=== PATIENT | female | born 1935 | race Caucasian/White ===

== ENCOUNTER 2017-12-10 14:48 | Inpatient (IN) | payer OTHER ==
[2017-12-10 15:19] VITALS: BMI 18.4
[2017-12-10 16:04] LABS: BASO # 0.1 K/uL (0.0-0.2); BASO % 1.1 % (0.0-2.0); EOS # 0.1 K/uL (0.0-0.7); EOS % 2.3 % (0.0-4.0); LYMPH % 49.7 % (20.0-40.0); MEAN CORPUSCULAR HEMOGLOBIN 31.3 pg (27.0-31.0); MEAN CORPUSCULAR HGB CONC 34.8 g/dL (33.0-37.0); MEAN PLATELET VOLUME 8.9 fL (7.2-11.7); MONO # 0.4 K/uL (0.0-0.8); MONO % 7.2 % (0.0-10.0); NEUT # 2.4 K/uL (1.8-7.0); NEUT % 39.7 % (50.0-75.0); RBC 4.17 Mil/uL (3.80-5.20); RED CELL DISTRIBUTION WIDTH 13.5 % (11.5-14.5)
[2017-12-10 16:12] LABS: INR 1.2; PROTHROMBIN TIME 13.4 SECONDS (9.7-12.2)
--- NOTE | 2017-12-10 16:58 | CT ---
PROCEDURE: CT HEAD WITHOUT CONTRAST. HISTORY: HEAD INJURY R/O BLEED COMPARISON: None available. TECHNIQUE: Axial computed tomography images were obtained through the head/brain without intravenous contrast. Radiation dose: Total exam DLP = 852.60 mGy-cm. This CT exam was performed using one or more of the following dose reduction techniques: Automated exposure control, adjustment of the mA and/or kV according to patient size, and/or use of iterative reconstruction technique. FINDINGS: HEMORRHAGE: No intracranial hemorrhage. BRAIN: No mass effect or edema. Mild to moderate diffuse age-appropriate atrophy. Moderate to severe chronic periventricular and deep/ subcortical white matter ischemic change. No evidence of acute infarct. Small old bilateral basal ganglia lacunar infarcts. VENTRICLES: Unremarkable. No hydrocephalus. CALVARIUM: No fracture. High left frontal scalp hematoma. PARANASAL SINUSES: Unremarkable as visualized. No significant inflammatory changes. MASTOID AIR CELLS: Unremarkable as visualized. No inflammatory changes. OTHER FINDINGS: None. IMPRESSION: No intracranial hemorrhage. Age related atrophy and chronic white matter ischemic change. High left frontal scalp hematoma.
[2017-12-10 17:00] LABS: ALB/GLOB RATIO 1.1 (1.0-2.1); ALBUMIN 3.9 g/dL (3.5-5.0); AST/SGOT 26 U/L (14-36); BLOOD UREA NITROGEN 16 mg/dL (7-17); CALCIUM 10.1 mg/dl (8.6-10.4); GFR AFRICAN-AMERICAN > 60; GFR NON-AFRICAN AMERICAN > 60
[2017-12-10 17:01] LABS: ALT/SGPT 25 U/L (9-52)
--- NOTE | 2017-12-10 17:04 | CT ---
PROCEDURE: CT MAXILLOFACIAL BONES WITHOUT CONTRAST HISTORY: FACIAL INJURY AFTER FALL R/O ORBITAL FX COMPARISON: None TECHNIQUE: Contiguous axial CT images of the maxillofacial bones were obtained. Coronal and sagittal reformats were generated. Radiation dose: Total exam DLP = 197.15 mGy-cm. This CT exam was performed using one or more of the following dose reduction techniques: Automated exposure control, adjustment of the mA and/or kV according to patient size, and/or use of iterative reconstruction technique. FINDINGS: NASAL BONES: Unremarkable. ORBITS: No orbital fracture. Globes are rounded and symmetric. No intraorbital hemorrhage. Optic nerves and extraocular muscles are symmetric. PARANASAL SINUSES/ MASTOIDS: Clear. MAXILLA: Unremarkable. MANDIBLE/ TEMPOROMANDIBULAR JOINTS: The mandible is not included in its entirety in this examination. No fracture identified. SKULL BASE: Unremarkable. TEMPORAL BONES: Middle ears and mastoid grossly unremarkable. OTHER FINDINGS: Mild left supraorbital scalp contusion. IMPRESSION: No evidence of facial fracture. Mild left supraorbital scalp contusion.
--- NOTE | 2017-12-10 17:10 | CT ---
PROCEDURE: CT Thoracic Spine without contrast HISTORY: THORACIC SPINE POSSIBLE FX COMPARISON: None. TECHNIQUE: Axial computed tomography images were obtained of the thoracic spine without intravenous contrast. Coronal and sagittal reformatted images were created and reviewed. Radiation dose: Total exam DLP = 594.64 mGy-cm. This CT exam was performed using one or more of the following dose reduction techniques: Automated exposure control, adjustment of the mA and/or kV according to patient size, and/or use of iterative reconstruction technique. FINDINGS: VERTEBRAE: Unremarkable. No fracture. Normal alignment. DISCS/SPINAL CANAL/NEURAL FORAMINA: Within the limits of the CT technique, no disc herniation seen. No central canal or neural foraminal stenosis.. PARASPINAL SOFT TISSUES: Unremarkable. OTHER FINDINGS: Unremarkable. IMPRESSION: No evidence of fracture or dislocation.
--- NOTE | 2017-12-10 17:14 | CT ---
PROCEDURE: CT Lumbar Spine without contrast HISTORY: FALL, BACK PAIN, R/O FX COMPARISON: None. TECHNIQUE: Axial computed tomography images were obtained of the lumbar spine without the use of intravenous contrast. Coronal and sagittal reformatted images were created and reviewed. Radiation dose: Total exam DLP = 1013.86 mGy-cm. This CT exam was performed using one or more of the following dose reduction techniques: Automated exposure control, adjustment of the mA and/or kV according to patient size, and/or use of iterative reconstruction technique. FINDINGS: VERTEBRAE: Unremarkable. No fracture. Normal alignmentThe vertebral bodies are maintained in height. The transverse processes and posterior elements are intact. There is mild dextroscoliotic curvature of the lumbar spine. . DISCS/SPINAL CANAL/NEURAL FORAMINA: There is narrowing of all of the intervertebral disc spaces of the lumbar spine consistent with diffuse degenerative disc disease. There is no gross disc herniation. There is no spinal stenosis appreciated. There is bilateral degenerative facet arthropathy at L4-5. PARASPINAL SOFT TISSUES: Unremarkable. OTHER FINDINGS: None. IMPRESSION: No evidence of fracture or dislocation. Diffuse degenerative disc disease. Mild dextroscoliosis.
--- NOTE | 2017-12-10 17:37 | C.PDOC ---
History Of Present Illness Patient is non Yoruba speaker, most of the history is obtained from group home and PMD Dr. Aguilar Kaiser. Patient was sent to the ED from her Longterm for evaluation. Patient was recently admitted to the group home yesterday and on arrival it was noted she bruising in her face. Patient had X-Ray done as an outpatient ordered by Dr. Aguilar Kaiser. X-Ray showed patient had compression fracture of T12 and Dr. Aguilar Kaiser sent her to the ED for evaluation. - HPI Time Seen by Provider: 12/10/17 15:06 Chief Complaint (Nursing): Trauma History Per: EMS, Other (PMD Dr. Aguilar Kaiser) History/Exam Limitations: language barrier Onset/Duration Of Symptoms: Days Injury Occurred (Timing): Just Before Arrival Location Of Injury: Left: Face (periorbtital) Recent travel outside of the [place]: No Additional History Per: Longterm Past Medical History Reviewed: Historical Data, Nursing Documentation, Vital Signs Vital Signs: Last Vital Signs Temp 97.4 F L 12/10/17 15:01 Pulse 83 12/10/17 15:01 Resp 20 12/10/17 15:01 BP 147/89 12/10/17 15:01 Pulse Ox 97 12/10/17 15:01 - Medical History PMH: HTN Surgical History: No Surg Hx Family History: States: Unknown Family Hx - Social History Hx Alcohol Use: No Hx Substance Use: No Review Of Systems Review Of Systems: ROS cannot be obtained secondary to pt's inabilty to answer questions. Physical Exam - Physical Exam Appears: Non-toxic, No Acute Distress Skin: Warm, Dry, Ecchymosis (left periorbital area) Head: Atraumatic, Normacephalic, Other (ecchymosis left periorbital area) Eye(s): bilateral: Normal Inspection, PERRL, EOMI Nose: No Discharge Oral Mucosa: Moist Neck: Normal ROM, No Midline Cervical Tenderness, Supple Chest: Symmetrical Cardiovascular: Rhythm Regular, No Murmur Respiratory: Normal Breath Sounds, No Rales, No Rhonchi, No Wheezing Gastrointestinal/Abdominal: Soft, No Tenderness, No Guarding, No Rebound Back: Other (Tenderness mid back level of T11 to L1 area) Extremity: No Deformity Extremity: Bilateral: Atraumatic, Normal Color And Temperature, Normal ROM Neurological/Psych: Oriented x3 ED Course And Treatment - Laboratory Results Result Diagrams: 12/10/17 16:06 12/10/17 16:06 O2 Sat by Pulse Oximetry: 97 (ON RA) Pulse Ox Interpretation: Normal - CT Scan/US CT head Other Rad Studies (CT/US): Read By Radiologist, Radiology Report Reviewed CT/US Interpretation: Accession No. : [id number]. Patient Name / ID : JORDAN RUSHING / [id number]. Exam Date : 12/10/2017 16:06:15 ( Approved ). Study Comment : Sex / Age : F / 81Y. Creator : Kelly Gates. Dictator : Colby Cain MD. Agile Scrum Coach : Town Manager : Colby Cain MD. Approver2 : Report Date : 12/10/2017 16:21:44. My Comment : . PROCEDURE: CT HEAD WITHOUT CONTRAST. HISTORY: HEAD INJURY R/O BLEED. COMPARISON: None available. TECHNIQUE: Axial computed tomography images were obtained through the head/brain without intravenous contrast. Radiation dose: Total exam DLP = 852.60 mGy-cm. This CT exam was performed using one or more of the following dose reduction techniques: Automated exposure control, adjustment of the mA and/or kV according to patient size, and/or use of iterative reconstruction technique. FINDINGS: HEMORRHAGE: No intracranial hemorrhage. BRAIN: No mass effect or edema. Mild to moderate diffuse age-appropriate atrophy. Moderate to severe chronic periventricular and deep/ subcortical white matter ischemic change. No evidence of acute infarct. Small old bilateral basal ganglia lacunar infarcts. VENTRICLES: Unremarkable. No hydrocephalus. CALVARIUM: No fracture. High left frontal scalp hematoma. PARANASAL SINUSES: Unremarkable as visualized. No significant inflammatory changes. MASTOID AIR CELLS: Unremarkable as visualized. No inflammatory changes. OTHER FINDINGS: None. IMPRESSION: No intracranial hemorrhage. Age related atrophy and chronic white matter ischemic change. High left frontal scalp hematoma. CT facial bones Other Rad Studies (CT/US): Read By Radiologist, Radiology Report Reviewed CT/US Interpretation: Accession No. : [id number]. Patient Name / ID : JORDAN RUSHING / [id number]. Exam Date : 12/10/2017 16:09:54 ( Approved ). Study Comment : Sex / Age : F / 81Y. Creator : Kelly Gates. Dictator : Colby Cain MD. Agile Scrum Coach : Town Manager : Colby Cain MD. Approver2 : Report Date : 12/10/2017 16:21:50. My Comment : . PROCEDURE: CT MAXILLOFACIAL BONES WITHOUT CONTRAST. HISTORY: FACIAL INJURY AFTER FALL R /O ORBITAL FX. COMPARISON: None. TECHNIQUE: Contiguous axial CT images of the maxillofacial bones were obtained. Coronal and sagittal reformats were generated. Radiation dose: Total exam DLP = 197.15 mGy-cm. This CT exam was performed using one or more of the following dose reduction techniques: Automated exposure control, adjustment of the mA and/or kV according to patient size, and/or use of iterative reconstruction technique. FINDINGS: NASAL BONES : Unremarkable. ORBITS: No orbital fracture. Globes are rounded and symmetric. No intraorbital hemorrhage. Optic nerves and extraocular muscles are symmetric. PARANASAL SINUSES/ MASTOIDS: Clear. MAXILLA: Unremarkable. MANDIBLE/ TEMPOROMANDIBULAR JOINTS: The mandible is not included in its entirety in this examination. No fracture identified. SKULL BASE: Unremarkable. TEMPORAL BONES: Middle ears and mastoid grossly unremarkable. OTHER FINDINGS: Mild left supraorbital scalp contusion. IMPRESSION: No evidence of facial fracture. Mild left supraorbital scalp contusion. CT L SPine Other Rad Studies (CT/US): Read By Radiologist, Radiology Report Reviewed CT/US Interpretation: Accession No. : [id number]. Patient Name / ID : JORDAN RUSHING / [id number]. Exam Date : 12/10/2017 16:16:00 ( Approved ). Study Comment : Sex / Age : F / 81Y. Creator : Kelly Gates. Dictator : Colby Cain MD. Agile Scrum Coach : Town Manager : Colby Cain MD. Approver2 : Report Date : 12/10/2017 16:45:29. My Comment : . PROCEDURE: CT Lumbar Spine without contrast. HISTORY: FALL, BACK PAIN, R/O FX. COMPARISON: None. TECHNIQUE: Axial computed tomography images were obtained of the lumbar spine without the use of intravenous contrast. Coronal and sagittal reformatted images were created and reviewed. Radiation dose: Total exam DLP = 1013.86 mGy-cm. This CT exam was performed using one or more of the following dose reduction techniques: Automated exposure control, adjustment of the mA and/or kV according to patient size, and/or use of iterative reconstruction technique. FINDINGS: VERTEBRAE: Unremarkable. No fracture. Normal alignmentThe vertebral bodies are maintained in height. The transverse processes and posterior elements are intact. There is mild dextroscoliotic curvature of the lumbar spine. . DISCS/SPINAL CANAL/NEURAL FORAMINA: There is narrowing of all of the intervertebral disc spaces of the lumbar spine consistent with diffuse degenerative disc disease. There is no gross disc herniation. There is no spinal stenosis appreciated. There is bilateral degenerative facet arthropathy at L4-5. PARASPINAL SOFT TISSUES: Unremarkable. OTHER FINDINGS: None. IMPRESSION: No evidence of fracture or dislocation. Diffuse degenerative disc disease. Mild dextroscoliosis. CT T spine Other Rad Studies (CT/US): Read By Radiologist, Radiology Report Reviewed CT/US Interpretation: Accession No. : [id number]. Patient Name / ID : JORDAN RUSHING / [id number]. Exam Date : 12/10/2017 16:12:58 ( Approved ). Study Comment : Sex / Age : F / 81Y. Creator : Kelly Gates. Dictator : Colby Cain MD. Agile Scrum Coach : Town Manager : Colby Cain MD. Approver2 : Report Date : 12/10/2017 16:23:02. My Comment : . PROCEDURE: CT Thoracic Spine without contrast. HISTORY: THORACIC SPINE POSSIBLE FX. COMPARISON: None. TECHNIQUE: Axial computed tomography images were obtained of the thoracic spine without intravenous contrast. Coronal and sagittal reformatted images were created and reviewed. Radiation dose: Total exam DLP = 594.64 mGy-cm. This CT exam was performed using one or more of the following dose reduction techniques: Automated exposure control, adjustment of the mA and/ or kV according to patient size, and/or use of iterative reconstruction technique. FINDINGS: VERTEBRAE: Unremarkable. No fracture. Normal alignment. DISCS/SPINAL CANAL/NEURAL FORAMINA: Within the limits of the CT technique, no disc herniation seen. No central canal or neural foraminal stenosis.. PARASPINAL SOFT TISSUES: Unremarkable. OTHER FINDINGS: Unremarkable. IMPRESSION: No evidence of fracture or dislocation. Progress Note: Plan: - CT head. - CT facial bones. - CT L spine. - CT T spine. - EKG. - Labs. - Tylenol 650 mg PO. - UA Disposition - Disposition - Scribe Statement The provider has reviewed the documentation as recorded by the Scribe Nick Cherry All medical record entries made by the Scribe were at my direction and personally dictated by me. I have reviewed the chart and agree that the record accurately reflects my personal performance of the history, physical exam, medical decision making, and the department course for this patient. I have also personally directed, reviewed, and agree with the discharge instructions and disposition.
[2017-12-10] MEDS ORDERED: Sodium Chloride 0.9% 500 ML IV ONE ×2 (18:01→18:23)
[2017-12-10 18:30] LABS: SQUAMOUS EPITHIAL < 1 /hpf (0-5); URINE BILIRUBIN NEGATIVE (NEGATIVE); URINE BLOOD 1+ (NEGATIVE); URINE CLARITY Clear (Clear); URINE COLOR Yellow (YELLOW); URINE GLUCOSE (UA) 3+ mg/dL (Normal); URINE LEUKOCYTE ESTERASE NEG Leu/uL (Negative); URINE PROTEIN NEGATIVE (NEGATIVE); URINE UROBILINOGEN NORMAL mg/dL (0.2-1.0)
[2017-12-10] MEDS ORDERED: (Novolin R) Insulin Human Regular 100 units/ml vial IV ONE (18:30)
[2017-12-10] MEDS ORDERED: (Novolin R) Insulin Human Regular 100 units/ml vial ONE (19:15)
--- NOTE | 2017-12-11 10:00 | CT ---
PROCEDURE: CT HEAD WITHOUT CONTRAST. HISTORY: altered mental status COMPARISON: 12/10/2017 TECHNIQUE: Axial computed tomography images were obtained through the head/brain without intravenous contrast. Radiation dose: Total exam DLP = 857 mGy-cm. This CT exam was performed using one or more of the following dose reduction techniques: Automated exposure control, adjustment of the mA and/or kV according to patient size, and/or use of iterative reconstruction technique. FINDINGS: HEMORRHAGE: No intracranial hemorrhage. BRAIN: No mass effect or edema. Scattered focal lucencies in the subcortical and periventricular white matter suggestive for chronic microvascular ischemic change. Age related atrophy. Chronic bilateral basal ganglia lacunar infarcts. VENTRICLES: Unremarkable. No hydrocephalus. CALVARIUM: Unremarkable. PARANASAL SINUSES: Unremarkable as visualized. No significant inflammatory changes. MASTOID AIR CELLS: Unremarkable as visualized. No inflammatory changes. OTHER FINDINGS: Persistent high left frontal scalp hematoma. IMPRESSION: Chronic microvascular ischemic change. Bilateral basal ganglia lacunar infarcts. Persistent mild left frontal scalp hematoma. Age related atrophy. If symptoms persists, consider further evaluation with MRI.
[2017-12-11] MEDS: Enoxaparin 40 mg Syringe SC SCH (10:08)
[2017-12-11] MEDS: Multiple Vitamins Tab PO SCH (10:09)
--- NOTE | 2017-12-11 11:34 | CP.PCM.HP ---
Past Patient History - Past Social History Smoking Status: Never Smoked - CARDIAC Hx Hypertension: Yes - ENDOCRINE/METABOLIC Hx Diabetes Mellitus Type 2: Yes - MUSCULOSKELETAL/RHEUMATOLOGICAL Hx Falls: Yes - PSYCHIATRIC Hx Substance Use: No Meds Allergies/Adverse Reactions: Allergies Allergy/AdvReac Type Severity Reaction Status Date / Time No Known Allergies Allergy Unverified 12/10/17 15:01 Physical Exam - Constitutional Appears: Well - Head Exam Head Exam: ATRAUMATIC, NORMAL INSPECTION, NORMOCEPHALIC - Eye Exam Eye Exam: EOMI, Normal appearance, PERRL Pupil Exam: NORMAL ACCOMODATION, PERRL - ENT Exam ENT Exam: Mucous Membranes Moist, Normal Exam - Neck Exam Neck exam: Positive for: Normal Inspection - Respiratory Exam Respiratory Exam: Decreased Breath Sounds - Cardiovascular Exam Cardiovascular Exam: REGULAR RHYTHM, +S1, +S2 - GI/Abdominal Exam GI & Abdominal Exam: Diminished Bowel Sounds, Soft - Rectal Exam Rectal Exam: Deferred Results - Vital Signs Recent Vital Signs: Last Vital Signs Temp 98.4 F 12/11/17 07:00 Pulse 78 12/11/17 07:00 Resp 20 12/11/17 07:00 BP 129/78 12/11/17 07:00 Pulse Ox 99 12/11/17 07:00 - Labs Result Diagrams: 12/10/17 16:06 12/10/17 16:06 Labs: Laboratory Results - last 24 hr 12/10/17 12/10/17 12/10/17 16:06 16:06 16:06 WBC 6.0 RBC 4.17 Hgb 13.0 Hct 37.5 MCV 90.0 MCH 31.3 H MCHC 34.8 RDW 13.5 Plt Count 255 MPV 8.9 Neut % (Auto) 39.7 L Lymph % (Auto) 49.7 H [place] % (Auto) 7.2 Eos % (Auto) 2.3 Baso % (Auto) 1.1 Neut # (Auto) 2.4 Lymph # (Auto) 3.0 [place] # (Auto) 0.4 Eos # (Auto) 0.1 Baso # (Auto) 0.1 PT 13.4 H INR 1.2 APTT 26 Sodium 139 Potassium 4.2 Chloride 99 Carbon Dioxide 26 Anion Gap 17 BUN 16 Creatinine 0.7 Est GFR ( Amer) > 60 Est GFR (Non-Af Amer) > 60 Random Glucose 352 H Calcium 10.1 Total Bilirubin 0.8 AST 26 ALT 25 Alkaline Phosphatase 151 H Total Protein 7.6 Albumin 3.9 Globulin 3.7 Albumin/Globulin Ratio 1.1 Urine Color Urine Clarity Urine pH Ur Specific [place] Urine Protein Urine Glucose (UA) Urine Ketones Urine Blood Urine Nitrate Urine Bilirubin Urine Urobilinogen Ur Leukocyte Esterase Urine WBC (Auto) Urine RBC (Auto) Ur Squamous Epith Cells 12/10/17 18:19 WBC RBC Hgb Hct MCV MCH MCHC RDW Plt Count MPV Neut % (Auto) Lymph % (Auto) [place] % (Auto) Eos % (Auto) Baso % (Auto) Neut # (Auto) Lymph # (Auto) [place] # (Auto) Eos # (Auto) Baso # (Auto) PT INR APTT Sodium Potassium Chloride Carbon Dioxide Anion Gap BUN Creatinine Est GFR ( Amer) Est GFR (Non-Af Amer) Random Glucose Calcium Total Bilirubin AST ALT Alkaline Phosphatase Total Protein Albumin Globulin Albumin/Globulin Ratio Urine Color Yellow Urine Clarity Clear Urine pH 5.0 Ur Specific [place] 1.032 H Urine Protein Negative Urine Glucose (UA) 3+ H Urine Ketones Trace Urine Blood 1+ H Urine Nitrate Negative Urine Bilirubin Negative Urine Urobilinogen Normal Ur Leukocyte Esterase Neg Urine WBC (Auto) 4 Urine RBC (Auto) < 1 Ur Squamous Epith Cells < 1
[2017-12-11] MEDS ORDERED: (Novolin R) Insulin Human Regular 100 units/ml vial SC SCH ×2 (17:54→22:00)
[2017-12-11] MEDS: (Novolin R) Insulin Human Regular 100 units/ml vial SC SCH ×2 (18:01→21:31)
--- NOTE | 2017-12-12 02:33 | CON ---
DATE: 12/10/2017 REASON FOR CONSULTATION: Status post fall and head trauma, concussion. HISTORY OF PRESENT ILLNESS: The patient is an 81-year-old female with past medical history of hypertension and dementia. The patient was living in [place], and the patient was brought here to senior care, and the patient was put in senior care just a day before the patient was noted to have a bruise on her face and had x-ray in the office and was found also to have T2 compression fracture. The patient was admitted for further evaluation after a CAT scan of the brain was done, and it showed the patient has a large left parietal hematoma. I have spoken with the son from [place]. The patient has a history of dementia, and the family were unable to take care of her, and they put her in senior care. The patient although unable to give any history, the daughter is at bedside, and the son-in-law as well. They say that the patient is completely dependent, unable to take care of herself. Needs help even with eating. The patient slightly recalls remote memories, but otherwise short-term memory and the patient's span completely gone. PAST MEDICAL HISTORY: Hypertension. SOCIAL HISTORY: Nonsmoker. Ethanol user. ALLERGIES: NO KNOWN ALLERGIC REACTIONS TO MEDICATIONS. PAST SURGICAL HISTORY: No major surgery in the past. REVIEW OF SYSTEMS: As per H and P and ER notes, reviewed. PHYSICAL EXAMINATION: VITAL SIGNS: Blood pressure 147/89, pulse 83, respirations 20, temperature 97.4. MENTAL STATUS: The patient is awake and alert. Makes eyes contact. Follow one-step commands with efforts, but unable to follow two step commands. Disoriented to time, place, and person. CRANIAL NERVES: Pupils 2 mm, bilaterally reactive. No facial asymmetry. No field defect. The patient was cooperative for full neurological examination. There is some mild asymmetry of nasal fold, probably a right central facial palsy. Mild twitches of the left eyelid. MOTOR: Normal tone in upper and lower extremities. The patient is able to lift her arms against gravity, and withdraws her lower extremities and responds to noxious stimuli. Deep tendon reflexes 1 in upper extremities, absent bilateral lower extremities. Plantar flexion. SENSORY: The patient withdraws her extremities and responds to noxious stimuli. MEDICATIONS: The patient is currently on multivitamin, enoxaparin, lisinopril, glipizide. IMAGING: I have reviewed the CAT of the brain which is consistent with severe periventricular white matter disease and multiple bilateral lacunar infarct. LABORATORY DATA: Reviewed as well. White blood cells 6, red blood cells 4.17, hemoglobin 13, hematocrit 37. MCV 90, platelet count 255. Sodium 139, potassium 4.2, chloride 99, CO2 of 26, anion gap 17, BUN 16, alkaline phosphatase 151. Glucose random 352. POC glucose was 205. IMPRESSION: Status post fall and concussion, not known if she lost her consciousness with the fall or not, but there is enlarged left occipital hematoma. The patient has dementia, most likely vascular dementia because of severe periventricular white matter disease, multiple lacunar infarcts in the subcortical region, advanced dementia. The patient's dementia is advanced and vascular. I do not expect the patient is benefiting from Aricept or Namenda. I would now start the patient on either one of them. Repeat CAT scan of the brain also reviewed, did not reveal significant changes. CT of the lumbar spine did not reveal fracture, was consistent with mild dextroscoliosis. CAT scan of the thoracic spine did not reveal fracture or dislocation. Otherwise, no further workup recommended at this point. Above was discussed with the family at bedside. Thank you for the consultation. Ferdinand Low MD
[2017-12-12] MEDS: (Novolin R) Insulin Human Regular 100 units/ml vial SC SCH ×4 (08:21→21:31)
[2017-12-12] MEDS: Enoxaparin 40 mg Syringe SC SCH (10:00)
[2017-12-12] MEDS: Multiple Vitamins Tab PO SCH (10:00)
--- NOTE | 2017-12-12 15:34 | CP.PCM.PN ---
Subjective - Date & Time of Evaluation Date of Evaluation: 12/12/17 Time of Evaluation: 10:20 - Subjective Subjective: clinically same Objective - Vital Signs/Intake and Output Vital Signs (last 24 hours): Temp Pulse Resp BP Pulse Ox 98.3 F 85 20 134/85 100 12/12/17 12:00 12/12/17 12:00 12/12/17 12:00 12/12/17 12:00 12/12/17 12:00 Intake and Output: 12/12/17 12/12/17 06:59 18:59 Intake Total 350 Output Total 265 Balance 85 - Medications Medications: Current Medications Enoxaparin Sodium (Lovenox) 40 mg SC DAILY [facility] Last Admin: 12/12/17 10:00 Dose: 40 mg Glipizide (Glucotrol) 5 mg PO DAILY [facility] Last Admin: 12/12/17 10:00 Dose: 5 mg Insulin Human Regular (Novolin R) 0 unit SC [facility] PRN Reason: Protocol Last Admin: 12/12/17 12:42 Dose: 4 unit Lisinopril (Zestril) 10 mg PO DAILY [facility] Last Admin: 12/12/17 10:00 Dose: 10 mg Multivitamins (Hexavitamin) 1 tab PO DAILY [facility] Last Admin: 12/12/17 10:00 Dose: 1 tab - Labs Labs: 12/10/17 16:06 12/10/17 16:06 PT 13.4 SECONDS (9.7-12.2) H 12/10/17 16:06 INR 1.2 12/10/17 16:06 APTT 26 SECONDS (21-34) 12/10/17 16:06 - Constitutional Appears: Well - Head Exam Head Exam: ATRAUMATIC, NORMAL INSPECTION, NORMOCEPHALIC - Eye Exam Eye Exam: EOMI, Normal appearance, PERRL Pupil Exam: NORMAL ACCOMODATION, PERRL - ENT Exam ENT Exam: Mucous Membranes Moist, Normal Exam - Neck Exam Neck Exam: Full ROM, Normal Inspection. absent: Lymphadenopathy - Respiratory Exam Respiratory Exam: Decreased Breath Sounds - Cardiovascular Exam Cardiovascular Exam: REGULAR RHYTHM, +S1, +S2 - GI/Abdominal Exam GI & Abdominal Exam: Soft, Diminished Bowel Sounds - Rectal Exam Rectal Exam: Deferred
[2017-12-13] MEDS: (Novolin R) Insulin Human Regular 100 units/ml vial SC SCH ×4 (07:48→21:26)
[2017-12-13 08:24] LABS: FREE T4 1.91 ng/dL (0.78-2.19)
[2017-12-13 09:19] LABS: FOLATE 6.2 ng/mL
[2017-12-13] MEDS: Multiple Vitamins Tab PO SCH (09:28)
[2017-12-13] MEDS: Enoxaparin 40 mg Syringe SC SCH (09:28)
--- NOTE | 2017-12-13 10:43 | MRI ---
PROCEDURE: MRI brain 12/13/2017. HISTORY: Left subcortical stroke. COMPARISON: Comparison made with prior CT scan of the brain dated 12/11/2017. TECHNIQUE: Multiplanar, multisequence MR images of the brain were obtained without intravenous contrast enhancement. FINDINGS: HEMORRHAGE: No acute parenchymal, subarachnoid or extra-axial hemorrhage. No evidence hemosiderin deposition identified on gradient echo weighted sequence. DWI: No evidence of an acute or early subacute infarction seen on diffusion imaging. . There are however multiple tiny foci of very dark T2 signal scattered about the supratentorial compartment bilaterally. These findings are consistent with tiny hemosiderin deposits -sequela of chronic hemorrhage. Rule out sequela of amyloid angiography or multiple cavernous hemangiomas BRAIN PARENCHYMA: Significant diffuse/confluent chronic periventricular white matter ischemic changes extending peripherally into the deep and subcortical white matter both cerebral hemispheres seen to better advantage on this study as compared to prior CT scan. Additionally, there are chronic bilateral basal nuclei and brainstem as well as few scattered cerebellar lacunar type infarct Moderate to significant generalized volume loss VENTRICLES: No obstructive hydrocephalus. CRANIUM: Unremarkable. ORBITS: Orbits and contents grossly unremarkable. . PARANASAL SINUSES/MASTOIDS: Paranasal sinuses are well-developed and currently well-aerated. . Partial opacification few inferior left-sided mastoid air cells. VASCULAR SYSTEM: Skull base flow voids intact. OTHER FINDINGS: None. IMPRESSION: No acute intracranial hemorrhage however there are multiple tiny hemosiderin deposits scattered throughout the supratentorial compartment both cerebral hemispheres. Rule out sequela of amyloid angiography or multiple cavernous hemangiomas No evidence acute infarct. Moderate to significant generalized volume loss
--- NOTE | 2017-12-13 11:53 | PN ---
DATE: 12/13/2017 TIME OF EVALUATION: 06:50 a.m. NEUROLOGICAL PROBLEM: Dementia, status post fall. SUBJECTIVE: The patient was seen and evaluated by Dr. Low over the weekend. PHYSICAL EXAMINATION: VITAL SIGNS: Blood pressure 140/83, mean arterial pressure 102, respiratory rate 16, temperature afebrile. GENERAL: Ms. Luz Kaiser is an 81-year-old elderly thinly-built cachectic [place] female presenting with change in mental status, worsening associated with fall and confusion. The patient was brought in from retirement. The patient's current examination: Visual field intact. Responds to visual threat on both sides. Mild facial asymmetry manifesting as left nasolabial fold. Increased tone on her left side compared with the right side. Deep tendon reflexes are absent. Plantars as upgoing on both sides. Her current medical problem which include hypertension, senile dementia of Alzheimer's type. Considering the clinical presentation, the patient should be evaluated for new cortical dysfunction manifesting as left-sided weakness, which probably is ischemic versus space-occupying lesion. The patient also has left than the right-sided weakness suggestive of seizures, should be ruled out considering her age. The patient also definitely need dementia workup. Deep venous thrombosis prophylaxis. The patient should get out of the bed and bedside physical therapy should be instituted. The patient can be benefitted somewhat starting with Aricept, the dose can be increased as she tolerates. Other workups are requested, which has to be followed. The patient will be following closely with you. Nathan Benoit MD
--- NOTE | 2017-12-13 12:12 | CP.PCM.PN ---
Subjective - Date & Time of Evaluation Date of Evaluation: 12/13/17 Time of Evaluation: 09:25 - Subjective Subjective: Progress Note for Dr. Kaiser Patient seen and examined at bedside. No acute events reported overnight. Patient can follow simple commands and not in distress. Unable to obtain further ROS due to baseline dementia. Objective - Vital Signs/Intake and Output Vital Signs (last 24 hours): Temp Pulse Resp BP Pulse Ox 97.7 F 83 20 109/68 99 12/13/17 07:00 12/13/17 08:27 12/13/17 07:00 12/13/17 07:00 12/13/17 07:00 Intake and Output: 12/13/17 12/13/17 06:59 18:59 Intake Total 625 Output Total 550 Balance 75 - Medications Medications: Current Medications Donepezil HCl (Aricept) 5 mg PO [facility] Enoxaparin Sodium (Lovenox) 40 mg SC DAILY [facility] Last Admin: 12/13/17 09:28 Dose: 40 mg Glipizide (Glucotrol) 5 mg PO DAILY [facility] Last Admin: 12/13/17 09:28 Dose: 5 mg Insulin Human Regular (Novolin R) 0 unit SC ACHS [facility] PRN Reason: Protocol Last Admin: 12/13/17 12:01 Dose: 5 unit Levothyroxine Sodium (Synthroid) 50 mcg PO DAILY@0630 [facility] Lisinopril (Zestril) 10 mg PO DAILY [facility] Last Admin: 12/13/17 09:28 Dose: 10 mg Multivitamins (Hexavitamin) 1 tab PO DAILY [facility] Last Admin: 12/13/17 09:28 Dose: 1 tab - Labs Labs: 12/10/17 16:06 12/10/17 16:06 PT 13.4 SECONDS (9.7-12.2) H 12/10/17 16:06 INR 1.2 12/10/17 16:06 APTT 26 SECONDS (21-34) 12/10/17 16:06 - Constitutional Appears: Non-toxic, No Acute Distress - Head Exam Head Exam: NORMOCEPHALIC. absent: ATRAUMATIC (ecchymosis on left periorbital region) - Eye Exam Eye Exam: EOMI, Normal appearance Pupil Exam: PERRL - ENT Exam ENT Exam: Mucous Membranes Moist - Neck Exam Neck Exam: Normal Inspection - Respiratory Exam Respiratory Exam: Clear to Ausculation Bilateral, NORMAL BREATHING PATTERN. absent: Rhonchi, Wheezes, Respiratory Distress - Cardiovascular Exam Cardiovascular Exam: REGULAR RHYTHM, +S1, +S2. absent: Murmur - GI/Abdominal Exam GI & Abdominal Exam: Soft, Normal Bowel Sounds. absent: Tenderness - Back Exam Back Exam: tenderness (lower back paraspinal ) - Neurological Exam Neurological Exam: Alert, Awake - Psychiatric Exam Psychiatric exam: Normal Affect, Normal Mood - Skin Skin Exam: Dry, Warm Assessment and Plan - Assessment and Plan (Free Text) Assessment: Advanced dementia -Neurology consulted, Dr. Cy maria appreciated -Aricept 5mg po -Carotid duplex shows no significant stenosis of bilateral extraceranial carotid arteries -MRI brain shows No acute intracranial hemorrhage. Multiple tiny hemosiderin deposits throughout cerebral hemispheres (see report) -RPR nonreactive -Vitamin B12: 234, supplemented -Folate normal Mechanical fall -CT head shows chronic microvascular ischemic change -CT thoracic shows no evidence of fracture or dislocation -CT lumbar shows no evidence of fracture or dislocation. Diffuse degen disc disease. Mild dextroscoliosis -CT orbit shows no evidence of fracture. Mild left scalp contusion Hypothyroidism -TSH 4.96 -Started Synthroid 50mcg Hypertension -Lisinopril 10mg DM -Glipizide 5mg -ISS -accucheck ACHS Prophylactic measures -Lovenox -Protonix -PT/OT Case discussed with attending physician All management per Dr. Kaiser
--- NOTE | 2017-12-13 14:32 | CP.PCM.PN ---
Subjective - Date & Time of Evaluation Date of Evaluation: 12/13/17 Time of Evaluation: 09:40 - Subjective Subjective: clinically same Objective - Vital Signs/Intake and Output Vital Signs (last 24 hours): Temp Pulse Resp BP Pulse Ox 97.7 F 83 20 109/68 99 12/13/17 07:00 12/13/17 08:27 12/13/17 07:00 12/13/17 07:00 12/13/17 07:00 Intake and Output: 12/13/17 12/13/17 06:59 18:59 Intake Total 625 Output Total 550 Balance 75 - Medications Medications: Current Medications Donepezil HCl (Aricept) 5 mg PO [facility] Enoxaparin Sodium (Lovenox) 40 mg SC DAILY [facility] Last Admin: 12/13/17 09:28 Dose: 40 mg Glipizide (Glucotrol) 5 mg PO DAILY [facility] Last Admin: 12/13/17 09:28 Dose: 5 mg Insulin Human Regular (Novolin R) 0 unit SC ACHS [facility] PRN Reason: Protocol Last Admin: 12/13/17 12:01 Dose: 5 unit Levothyroxine Sodium (Synthroid) 50 mcg PO DAILY@0630 [facility] Lisinopril (Zestril) 10 mg PO DAILY [facility] Last Admin: 12/13/17 09:28 Dose: 10 mg Multivitamins (Hexavitamin) 1 tab PO DAILY [facility] Last Admin: 12/13/17 09:28 Dose: 1 tab - Labs Labs: 12/10/17 16:06 12/10/17 16:06 PT 13.4 SECONDS (9.7-12.2) H 12/10/17 16:06 INR 1.2 12/10/17 16:06 APTT 26 SECONDS (21-34) 12/10/17 16:06 - Constitutional Appears: Well - Head Exam Head Exam: ATRAUMATIC, NORMAL INSPECTION, NORMOCEPHALIC - Eye Exam Eye Exam: EOMI, Normal appearance, PERRL Pupil Exam: NORMAL ACCOMODATION, PERRL - ENT Exam ENT Exam: Mucous Membranes Moist, Normal Exam - Neck Exam Neck Exam: Full ROM, Normal Inspection. absent: Lymphadenopathy - Respiratory Exam Respiratory Exam: Decreased Breath Sounds - Cardiovascular Exam Cardiovascular Exam: REGULAR RHYTHM, +S1, +S2 - GI/Abdominal Exam GI & Abdominal Exam: Soft, Diminished Bowel Sounds - Rectal Exam Rectal Exam: Deferred
[2017-12-13 14:42] LABS: BASO # 0.1 K/uL (0.0-0.2); BASO % 0.9 % (0.0-2.0); EOS # 0.2 K/uL (0.0-0.7); EOS % 2.7 % (0.0-4.0); HEMOGLOBIN 12.7 g/dL (11.0-16.0); LYMPH # 3.4 K/uL (1.0-4.3); LYMPH % 55.7 % (20.0-40.0); MEAN CELL VOLUME 88.9 fL (81.0-99.0); MEAN CORPUSCULAR HEMOGLOBIN 31.2 pg (27.0-31.0); MEAN CORPUSCULAR HGB CONC 35.1 g/dL (33.0-37.0); MEAN PLATELET VOLUME 9.3 fL (7.2-11.7); MONO # 0.4 K/uL (0.0-0.8); MONO % 7.1 % (0.0-10.0); NEUT % 33.6 % (50.0-75.0); NRBC % 0.1 % (0.0-2.0); RBC 4.08 Mil/uL (3.80-5.20); RED CELL DISTRIBUTION WIDTH 13.3 % (11.5-14.5)
--- NOTE | 2017-12-13 14:59 | VASCLAB ---
PROCEDURE: HISTORY: syncope, altered mental status COMPARISON: None available. TECHNIQUE: Grayscale and duplex Doppler evaluation of the cervical carotid and vertebral arteries were performed. The common carotid, carotid bifurcations and cervical Internal Carotid Artery (ICA) and proximal External Carotid Artery (ECA) were evaluated. The vertebral arteries were evaluated for gross patency and flow direction. Report prepared by BARBARA Callaway FINDINGS: RIGHT CAROTID ARTERIES: 1. Common Carotid Artery: No significant focal plaque formation of the right common carotid artery. Maximum Peak Systolic velocity: 41 cm/sec: End-diastolic velocity 9 cm/sec. 2. Carotid Bifurcation: plaque formation. Maximum Peak Systolic velocity: 31 cm/sec: End-diastolic velocity 9 cm/sec. 3. Internal Carotid Artery: Plaque description: 3.1. Proximal Segment: Peak systolic velocity 58 cm/sec: End-diastolic velocity 15 cm/sec - % stenosis 0-15% 3.2. Middle Segment: Peak systolic velocity 62 cm/sec: End-diastolic velocity 19 cm/sec - % stenosis 0-15% 3.3. Distal Segment: Peak systolic velocity 61 cm/sec: End-diastolic velocity 14 cm/sec - % stenosis 0-15% 4. External Carotid Artery: No significant focal plaque formation. Peak systolic velocity 65 cm/sec 5. ICA/CCA Ratio: 1.5 LEFT CAROTID ARTERIES: 1. Common Carotid Artery: No significant focal plaque formation of the left common carotid artery. Maximum Peak Systolic velocity: 53 cm/sec: End-diastolic velocity 11 cm/sec. 2. Carotid Bifurcation: plaque formation. Maximum Peak Systolic velocity: 38 cm/sec: End-diastolic velocity 8 cm/sec. 3. Internal Carotid Artery: Plaque description: 3.1. Proximal Segment: Peak systolic velocity 45 cm/sec: End-diastolic velocity 11 cm/sec - % stenosis 0-15% 3.2. Middle Segment: Peak systolic velocity 66 cm/sec: End-diastolic velocity 18 cm/sec - % stenosis 0-15% 3.3. Distal Segment: Peak systolic velocity 38 cm/sec: End-diastolic velocity 8 cm/sec - % stenosis 0-15% 4. External Carotid Artery: No significant focal plaque formation. Peak systolic velocity 69 cm/sec 5. ICA/CCA Ratio: 1.3 VERTEBRAL ARTERIES: 1. Right Vertebral Artery: The right vertebral artery flow direction is antegrade. 2. Left Vertebral Artery: The left vertebral artery flow direction is antegrade. OTHER FINDINGS: 1. Right Brachial Blood pressure: mmHg. 2. Left Brachial Blood pressure: mmHg. IMPRESSION: RIGHT: Duplex scan does not suggest hemodynamically significant stenosis of the right extracranial carotid arteries. LEFT: Duplex scan does not suggest hemodynamically significant stenosis of the left extracranial carotid arteries.
[2017-12-13 15:21] LABS: ALBUMIN 3.7 g/dL (3.5-5.0); ALT/SGPT 20 U/L (9-52); AST/SGOT 38 U/L (14-36); BLOOD UREA NITROGEN 15 mg/dL (7-17); CALCIUM 9.8 mg/dl (8.6-10.4); GFR AFRICAN-AMERICAN > 60; GFR NON-AFRICAN AMERICAN > 60
[2017-12-14] MEDS: Levothyroxine 50 MCG TAB PO SCH (06:30)
[2017-12-14 06:34] LABS: BASO % 0.7 % (0.0-2.0); EOS # 0.2 K/uL (0.0-0.7); EOS % 3.5 % (0.0-4.0); HEMOGLOBIN 12.4 g/dL (11.0-16.0); LYMPH # 2.7 K/uL (1.0-4.3); LYMPH % 47.3 % (20.0-40.0); MEAN CELL VOLUME 89.1 fL (81.0-99.0); MEAN CORPUSCULAR HEMOGLOBIN 31.2 pg (27.0-31.0); MEAN PLATELET VOLUME 8.6 fL (7.2-11.7); MONO # 0.4 K/uL (0.0-0.8); MONO % 6.7 % (0.0-10.0); NEUT # 2.4 K/uL (1.8-7.0); NEUT % 41.8 % (50.0-75.0); NRBC % 0.1 % (0.0-2.0); RBC 3.96 Mil/uL (3.80-5.20); RED CELL DISTRIBUTION WIDTH 13.6 % (11.5-14.5); WHITE BLOOD COUNT 5.8 K/uL (4.8-10.8)
[2017-12-14 06:51] LABS: ALBUMIN 3.5 g/dL (3.5-5.0); ALT/SGPT 31 U/L (9-52); AST/SGOT 40 U/L (14-36); BLOOD UREA NITROGEN 14 mg/dL (7-17); CALCIUM 9.5 mg/dl (8.6-10.4); GFR AFRICAN-AMERICAN > 60; GFR NON-AFRICAN AMERICAN > 60
[2017-12-14] MEDS: (Novolin R) Insulin Human Regular 100 units/ml vial SC SCH ×4 (08:23→21:33)
[2017-12-14] MEDS: Enoxaparin 40 mg Syringe SC SCH (09:05)
[2017-12-14] MEDS: Pantoprazole 40 mg EC Tab PO SCH (09:06)
[2017-12-14] MEDS: Multiple Vitamins Tab PO SCH (09:06)
--- NOTE | 2017-12-14 09:54 | CP.PCM.PN ---
Subjective - Date & Time of Evaluation Date of Evaluation: 12/14/17 Time of Evaluation: 09:53 - Subjective Subjective: PGY02 note for Dr. Kaiser Patient seen and examined at bedside. Nursing reports patient agitated overnight. Unable to obtain further ROS due to baseline dementia. Objective - Vital Signs/Intake and Output Vital Signs (last 24 hours): Temp Pulse Resp BP Pulse Ox 98.2 F 85 20 112/70 97 12/14/17 08:02 12/14/17 08:02 12/14/17 08:02 12/14/17 08:02 12/14/17 08:02 Intake and Output: 12/14/17 12/14/17 06:59 18:59 Intake Total 150 Output Total 725 Balance -575 - Medications Medications: Current Medications Donepezil HCl (Aricept) 5 mg PO [facility] Last Admin: 12/13/17 21:26 Dose: 5 mg Enoxaparin Sodium (Lovenox) 40 mg SC DAILY [facility] Last Admin: 12/14/17 09:05 Dose: 40 mg Glipizide (Glucotrol) 5 mg PO DAILY [facility] Last Admin: 12/14/17 09:06 Dose: 5 mg Insulin Human Regular (Novolin R) 0 unit SC [facility] PRN Reason: Protocol Last Admin: 12/14/17 08:23 Dose: 2 unit Levothyroxine Sodium (Synthroid) 50 mcg PO DAILY@0630 [facility] Last Admin: 12/14/17 06:30 Dose: 50 mcg Lisinopril (Zestril) 10 mg PO DAILY [facility] Last Admin: 12/14/17 09:06 Dose: 10 mg Multivitamins (Hexavitamin) 1 tab PO DAILY [facility] Last Admin: 12/14/17 09:06 Dose: 1 tab Pantoprazole Sodium (Protonix Ec Tab) 40 mg PO DAILY [facility] Last Admin: 12/14/17 09:06 Dose: 40 mg - Labs Labs: 12/14/17 06:26 12/14/17 06:26 PT 13.4 SECONDS (9.7-12.2) H 12/10/17 16:06 INR 1.2 12/10/17 16:06 APTT 26 SECONDS (21-34) 12/10/17 16:06 - Additional Findings Additional findings: - Constitutional Appears: Non-toxic, No Acute Distress - Head Exam Head Exam: NORMOCEPHALIC. absent: ATRAUMATIC (ecchymosis on left periorbital region) - Eye Exam Eye Exam: EOMI, Normal appearance Pupil Exam: PERRL - ENT Exam ENT Exam: Mucous Membranes Moist - Neck Exam Neck Exam: Normal Inspection - Respiratory Exam Respiratory Exam: Clear to Ausculation Bilateral, NORMAL BREATHING PATTERN. absent: Rhonchi, Wheezes, Respiratory Distress - Cardiovascular Exam Cardiovascular Exam: REGULAR RHYTHM, +S1, +S2. absent: Murmur - GI/Abdominal Exam GI & Abdominal Exam: Soft, Normal Bowel Sounds. absent: Tenderness - Back Exam Back Exam: tenderness (lower back paraspinal ) - Neurological Exam Neurological Exam: Alert, Awake - Psychiatric Exam Psychiatric exam: Normal Affect, Normal Mood - Skin Skin Exam: Dry, Warm Assessment and Plan - Assessment and Plan (Free Text) Plan: Advanced dementia -Neurology consulted, Dr. Benoit help appreciated -Aricept 5mg po -Carotid duplex shows no significant stenosis of bilateral extraceranial carotid arteries -MRI brain shows No acute intracranial hemorrhage. Multiple tiny hemosiderin deposits throughout cerebral hemispheres (see report) -RPR nonreactive -Vitamin B12: 234, supplemented -Folate normal Ativan 1mg IV Q6H PRN Weakness Dr. Benoit, Neurology strategic solutions consultant - Etiology of weakness: ischemic vs space-occupying manifesting as left-sided weakness. Hx also suggestive of possible seizures. PT: PAULINO f/u EEG Mechanical fall -CT head shows chronic microvascular ischemic change -CT thoracic shows no evidence of fracture or dislocation -CT lumbar shows no evidence of fracture or dislocation. Diffuse degen disc disease. Mild dextroscoliosis -CT orbit shows no evidence of fracture. Mild left scalp contusion Hypothyroidism -TSH 4.96 -Started Synthroid 50mcg Hypertension -Lisinopril 10mg DM -Glipizide 5mg -ISS -accucheck ACHS Prophylactic measures -Lovenox -Protonix -PT/OT - recommend PAULINO Case discussed with attending physician All management per Dr. Kaiser
--- NOTE | 2017-12-14 15:46 | CARD ---
APPROVED REPORT EKG Measurement Heart [id number] <Conclusion> Normal sinus rhythm with sinus arrhythmia Nonspecific T wave changes Left axis deviation Abnormal ECG
--- NOTE | 2017-12-14 18:28 | CP.PCM.PN ---
Subjective - Date & Time of Evaluation Date of Evaluation: 12/14/17 Time of Evaluation: 11:00 - Subjective Subjective: clinically same Objective - Vital Signs/Intake and Output Vital Signs (last 24 hours): Temp Pulse Resp BP Pulse Ox 98.2 F 85 20 112/70 97 12/14/17 08:02 12/14/17 08:02 12/14/17 08:02 12/14/17 08:02 12/14/17 08:02 Intake and Output: 12/14/17 12/14/17 06:59 18:59 Intake Total 150 500 Output Total 725 Balance -575 500 - Medications Medications: Current Medications Donepezil HCl (Aricept) 5 mg PO [facility] Last Admin: 12/13/17 21:26 Dose: 5 mg Enoxaparin Sodium (Lovenox) 40 mg SC DAILY [facility] Last Admin: 12/14/17 09:05 Dose: 40 mg Glipizide (Glucotrol) 5 mg PO DAILY [facility] Last Admin: 12/14/17 09:06 Dose: 5 mg Insulin Human Regular (Novolin R) 0 unit SC [facility] PRN Reason: Protocol Last Admin: 12/14/17 17:30 Dose: 2 unit Levothyroxine Sodium (Synthroid) 50 mcg PO DAILY@0630 [facility] Last Admin: 12/14/17 06:30 Dose: 50 mcg Lisinopril (Zestril) 10 mg PO DAILY [facility] Last Admin: 12/14/17 09:06 Dose: 10 mg Lorazepam (Ativan) 1 mg IVP Q6H PRN PRN Reason: Anxiety Last Admin: 12/14/17 14:41 Dose: 1 mg Multivitamins (Hexavitamin) 1 tab PO DAILY [facility] Last Admin: 12/14/17 09:06 Dose: 1 tab Pantoprazole Sodium (Protonix Ec Tab) 40 mg PO DAILY [facility] Last Admin: 12/14/17 09:06 Dose: 40 mg - Labs Labs: 12/14/17 06:26 12/14/17 06:26 PT 13.4 SECONDS (9.7-12.2) H 12/10/17 16:06 INR 1.2 12/10/17 16:06 APTT 26 SECONDS (21-34) 12/10/17 16:06 - Constitutional Appears: Well - Head Exam Head Exam: ATRAUMATIC, NORMAL INSPECTION, NORMOCEPHALIC - Eye Exam Eye Exam: EOMI, Normal appearance, PERRL Pupil Exam: NORMAL ACCOMODATION, PERRL - ENT Exam ENT Exam: Mucous Membranes Moist, Normal Exam - Neck Exam Neck Exam: Full ROM, Normal Inspection. absent: Lymphadenopathy - Respiratory Exam Respiratory Exam: Decreased Breath Sounds - Cardiovascular Exam Cardiovascular Exam: REGULAR RHYTHM, +S1, +S2 - GI/Abdominal Exam GI & Abdominal Exam: Soft, Diminished Bowel Sounds - Rectal Exam Rectal Exam: Deferred
[2017-12-15] MEDS: Levothyroxine 50 MCG TAB PO SCH (05:32)
[2017-12-15 07:47] LABS: BASO # 0.1 K/uL (0.0-0.2); BASO % 1.2 % (0.0-2.0); EOS # 0.3 K/uL (0.0-0.7); EOS % 4.7 % (0.0-4.0); HEMOGLOBIN 12.3 g/dL (11.0-16.0); LYMPH # 3.2 K/uL (1.0-4.3); LYMPH % 48.5 % (20.0-40.0); MEAN CELL VOLUME 89.6 fL (81.0-99.0); MEAN CORPUSCULAR HEMOGLOBIN 31.3 pg (27.0-31.0); MEAN CORPUSCULAR HGB CONC 34.9 g/dL (33.0-37.0); MEAN PLATELET VOLUME 9.2 fL (7.2-11.7); MONO # 0.5 K/uL (0.0-0.8); MONO % 7.2 % (0.0-10.0); NEUT # 2.5 K/uL (1.8-7.0); NEUT % 38.4 % (50.0-75.0); NRBC % 0.1 % (0.0-2.0); RBC 3.93 Mil/uL (3.80-5.20); RED CELL DISTRIBUTION WIDTH 13.6 % (11.5-14.5); WHITE BLOOD COUNT 6.6 K/uL (4.8-10.8)
[2017-12-15 07:50] LABS: ALB/GLOB RATIO 1.1 (1.0-2.1); ALBUMIN 3.9 g/dL (3.5-5.0); ALT/SGPT 25 U/L (9-52); AST/SGOT 43 U/L (14-36); BLOOD UREA NITROGEN 12 mg/dL (7-17); CALCIUM 8.9 mg/dl (8.6-10.4); GFR AFRICAN-AMERICAN > 60; GFR NON-AFRICAN AMERICAN > 60
[2017-12-15] MEDS: (Novolin R) Insulin Human Regular 100 units/ml vial SC SCH ×3 (08:12→17:06)
[2017-12-15] MEDS: Multiple Vitamins Tab PO SCH (09:28)
[2017-12-15] MEDS: Enoxaparin 40 mg Syringe SC SCH (09:28)
[2017-12-15] MEDS: Pantoprazole 40 mg EC Tab PO SCH (09:28)
--- NOTE | 2017-12-15 12:07 | PN ---
DATE: 12/15/2017 TIME OF EVALUATION: 07:15 a.m. NEUROLOGICAL PROBLEM: Change in mental status with vascular dementia, superimposed with underlying senile dementia of Alzheimer's type. PHYSICAL EXAMINATION: VITAL SIGNS: Blood pressure 132/78, mean artery pressure of 96, respiratory rate 16, temperature afebrile. NEUROLOGIC: The patient is arousable on calling her name. Moves all 4 extremities with increased tone again noted on the left than her right side. Rest of the examination is unchanged. MRI of the brain showed a significant atrophy with multiple subcortical ischemic changes with magnetic field, suspicion of hemosiderosis. Considering her age, this is probably microangiopathy versus previous bleed. Considering her age, this is probably amyloid angiopathic changes. RECOMMENDATIONS: MR angiogram is recommended to rule out any vascular pathology. The patient should get out of the bed. DVT prophylaxis and bedside physical therapy. Nathan Benoit MD
--- NOTE | 2017-12-15 13:02 | MRI ---
PROCEDURE: Magnetic Resonance Angiography Brain HISTORY: Angiopathy COMPARISON: None available. TECHNIQUE: 3D time of flight MR angiography of the intracranial arteries was performed. Rotating maximum intensity projection images were generated. FINDINGS: INTERNAL CAROTID ARTERIES: Normal flow related signal. The skull base, petrous, cavernous and supraclinoid segments are bilaterally widely patient. ANTERIOR CEREBRAL ARTERIES: Normal flow related signal. A1 and A2 segments are widely patent. There is asymmetric narrowing in the distal left A2 segment. MIDDLE CEREBRAL ARTERIES: Normal flow related signal. M1 and M2 segments are widely patent. Perisylvian branches grossly symmetric. POSTERIOR CIRCULATION: Basilar Artery: Normal flow related signal. Distal Vertebral Arteries: The right vertebral artery is hypoplastic and likely terminates in the PICA. There is normal flow related signal in the left vertebral artery. Posterior Cerebral Arteries: The right posterior cerebral artery is widely patent. Segmental focal signal void in the left proximal P2 segment is likely related to tortuosity. Posterior Inferior Cerebellar Arteries: Unremarkable. ANEURYSM/ VASCULAR MALFORMATIONS: None. OTHER FINDINGS: None. IMPRESSION: 1. Asymmetric narrowing of the left distal A2 segment. 2. 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 3. No evidence of occlusion or saccular aneurysm.
--- NOTE | 2017-12-15 13:05 | CP.PCM.PN ---
Subjective - Date & Time of Evaluation Date of Evaluation: 12/15/17 Time of Evaluation: 12:59 - Subjective Subjective: PGY02 note for Dr. Kaiser Patient seen and examined at bedside. Nursing reports patient less agitated overnight - no acute events noted. Unable to obtain further ROS due to baseline dementia. Objective - Vital Signs/Intake and Output Vital Signs (last 24 hours): Temp Pulse Resp BP Pulse Ox 97.7 F 92 H 20 111/73 96 12/15/17 07:50 12/15/17 09:27 12/15/17 07:50 12/15/17 09:27 12/15/17 07:50 Intake and Output: 12/15/17 12/15/17 06:59 18:59 Intake Total 250 Output Total 350 Balance -100 - Medications Medications: Current Medications Donepezil HCl (Aricept) 5 mg PO HS [facility] Last Admin: 12/14/17 22:10 Dose: 5 mg Enoxaparin Sodium (Lovenox) 40 mg SC DAILY [facility] Last Admin: 12/15/17 09:28 Dose: 40 mg Glipizide (Glucotrol) 5 mg PO DAILY [facility] Last Admin: 12/15/17 09:28 Dose: 5 mg Insulin Human Regular (Novolin R) 0 unit SC ACHS [facility] PRN Reason: Protocol Last Admin: 12/15/17 08:12 Dose: 1 unit Levothyroxine Sodium (Synthroid) 50 mcg PO DAILY@0630 [facility] Last Admin: 12/15/17 05:32 Dose: 50 mcg Lisinopril (Zestril) 10 mg PO DAILY [facility] Last Admin: 12/15/17 09:28 Dose: 10 mg Lorazepam (Ativan) 1 mg IVP Q6H PRN PRN Reason: Anxiety Last Admin: 12/14/17 14:41 Dose: 1 mg Multivitamins (Hexavitamin) 1 tab PO DAILY [facility] Last Admin: 12/15/17 09:28 Dose: 1 tab Pantoprazole Sodium (Protonix Ec Tab) 40 mg PO DAILY [facility] Last Admin: 12/15/17 09:28 Dose: 40 mg - Labs Labs: 12/15/17 07:22 12/15/17 07:22 PT 13.4 SECONDS (9.7-12.2) H 12/10/17 16:06 INR 1.2 12/10/17 16:06 APTT 26 SECONDS (21-34) 12/10/17 16:06 - Additional Findings Additional findings: - Constitutional Appears: Non-toxic, No Acute Distress - Head Exam Head Exam: NORMOCEPHALIC. absent: ATRAUMATIC (ecchymosis on left periorbital region) - Eye Exam Eye Exam: EOMI, Normal appearance Pupil Exam: PERRL - ENT Exam ENT Exam: Mucous Membranes Moist - Neck Exam Neck Exam: Normal Inspection - Respiratory Exam Respiratory Exam: Clear to Ausculation Bilateral, NORMAL BREATHING PATTERN. absent: Rhonchi, Wheezes, Respiratory Distress - Cardiovascular Exam Cardiovascular Exam: REGULAR RHYTHM, +S1, +S2. absent: Murmur - GI/Abdominal Exam GI & Abdominal Exam: Soft, Normal Bowel Sounds. absent: Tenderness - Back Exam Back Exam: tenderness (lower back paraspinal ) - Neurological Exam Neurological Exam: Alert, Awake - pt seen moving all extremities, does not follow instructions - Psychiatric Exam Psychiatric exam: Normal Affect, Normal Mood - Skin Skin Exam: Dry, Warm Assessment and Plan - Assessment and Plan (Free Text) Plan: AMS w Advanced dementia -Admit to tele -Aricept 5mg po -Carotid duplex shows no significant stenosis of bilateral extraceranial carotid arteries -MRI brain shows No acute intracranial hemorrhage. 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 Benoit help appreciated - MRI shows significant atrophy w multiple subcortical ischemic changes. Suspicious for hemosiderosis. Probably microangiopathy vs bleed. 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 - recommend out of bed, bedside PT - recommend MR angiogram to r/o vascular pathology Ativan 1mg IV Q6H PRN for agitation f/u MR Angiogram Weakness Dr. Benoit, Neurology sr solutions consultant - Etiology of weakness: ischemic vs space-occupying manifesting as left-sided weakness. Hx also suggestive of possible seizures. PT: PAULINO f/u EEG Mechanical fall -CT head shows chronic microvascular ischemic change -CT thoracic shows no evidence of fracture or dislocation -CT lumbar shows no evidence of fracture or dislocation. Diffuse degen disc disease. Mild dextroscoliosis -CT orbit shows no evidence of fracture. Mild left scalp contusion Hypothyroidism -TSH 4.96 -Continue Synthroid 50mcg Hypertension -Lisinopril 10mg DM -Glipizide 5mg -ISS -accucheck ACHS Prophylactic measures -Lovenox -Protonix -PT/OT - recommend PAULINO Case discussed with attending physician All management per Dr. Kaiser
--- NOTE | 2017-12-15 17:28 | CP.PCM.PN ---
Subjective - Date & Time of Evaluation Date of Evaluation: 12/15/17 Time of Evaluation: 12:00 - Subjective Subjective: clinically same Objective - Vital Signs/Intake and Output Vital Signs (last 24 hours): Temp Pulse Resp BP Pulse Ox 98.1 F 86 20 116/63 96 12/15/17 16:00 12/15/17 16:00 12/15/17 16:00 12/15/17 16:00 12/15/17 16:00 Intake and Output: 12/15/17 12/15/17 06:59 18:59 Intake Total 250 450 Output Total 350 400 Balance -100 50 - Medications Medications: Current Medications Donepezil HCl (Aricept) 5 mg PO HS [facility] Last Admin: 12/14/17 22:10 Dose: 5 mg Enoxaparin Sodium (Lovenox) 40 mg SC DAILY [facility] Last Admin: 12/15/17 09:28 Dose: 40 mg Glipizide (Glucotrol) 5 mg PO DAILY [facility] Last Admin: 12/15/17 09:28 Dose: 5 mg Insulin Human Regular (Novolin R) 0 unit SC [facility] PRN Reason: Protocol Last Admin: 12/15/17 17:06 Dose: 1 unit Levothyroxine Sodium (Synthroid) 50 mcg PO DAILY@0630 [facility] Last Admin: 12/15/17 05:32 Dose: 50 mcg Lisinopril (Zestril) 10 mg PO DAILY [facility] Last Admin: 12/15/17 09:28 Dose: 10 mg Lorazepam (Ativan) 1 mg IVP Q6H PRN PRN Reason: Anxiety Last Admin: 12/14/17 14:41 Dose: 1 mg Multivitamins (Hexavitamin) 1 tab PO DAILY [facility] Last Admin: 12/15/17 09:28 Dose: 1 tab Pantoprazole Sodium (Protonix Ec Tab) 40 mg PO DAILY [facility] Last Admin: 12/15/17 09:28 Dose: 40 mg - Labs Labs: 12/15/17 07:22 12/15/17 07:22 PT 13.4 SECONDS (9.7-12.2) H 12/10/17 16:06 INR 1.2 12/10/17 16:06 APTT 26 SECONDS (21-34) 12/10/17 16:06 - Constitutional Appears: Well - Head Exam Head Exam: ATRAUMATIC, NORMAL INSPECTION, NORMOCEPHALIC - Eye Exam Eye Exam: EOMI, Normal appearance, PERRL Pupil Exam: NORMAL ACCOMODATION, PERRL - ENT Exam ENT Exam: Mucous Membranes Moist, Normal Exam - Neck Exam Neck Exam: Full ROM, Normal Inspection. absent: Lymphadenopathy - Respiratory Exam Respiratory Exam: Decreased Breath Sounds - Cardiovascular Exam Cardiovascular Exam: REGULAR RHYTHM, +S1, +S2 - GI/Abdominal Exam GI & Abdominal Exam: Soft, Diminished Bowel Sounds - Rectal Exam Rectal Exam: Deferred
[2017-12-16 05:17] VITALS: O2SAT 96
[2017-12-16] MEDS: Levothyroxine 50 MCG TAB PO SCH (05:36)
--- NOTE | 2017-12-16 07:00 | CP.PCM.PN ---
Subjective - Date & Time of Evaluation Date of Evaluation: 12/16/17 Time of Evaluation: 11:00 - Subjective Subjective: Progress Note for Dr. Kaiser Patient seen and examined at bedside. Patient was agitated overnight, otherwise no acute events reported. This morning resting in bed comfortably. Unable to obtain further ROS due to baseline dementia. Objective - Vital Signs/Intake and Output Vital Signs (last 24 hours): Temp Pulse Resp BP Pulse Ox 98.0 F 80 20 127/72 96 12/16/17 04:15 12/16/17 04:15 12/16/17 04:15 12/16/17 04:15 12/16/17 04:15 Intake and Output: 12/15/17 12/16/17 18:59 06:59 Intake Total 450 Output Total 400 560 Balance 50 -560 - Medications Medications: Current Medications Donepezil HCl (Aricept) 5 mg PO HS [facility] Last Admin: 12/15/17 21:39 Dose: 5 mg Enoxaparin Sodium (Lovenox) 40 mg SC DAILY [facility] Last Admin: 12/15/17 09:28 Dose: 40 mg Glipizide (Glucotrol) 5 mg PO DAILY [facility] Last Admin: 12/15/17 09:28 Dose: 5 mg Insulin Human Regular (Novolin R) 0 unit SC ACHS [facility] PRN Reason: Protocol Last Admin: 12/15/17 17:06 Dose: 1 unit Levothyroxine Sodium (Synthroid) 50 mcg PO DAILY@0630 [facility] Last Admin: 12/16/17 05:36 Dose: 50 mcg Lisinopril (Zestril) 10 mg PO DAILY [facility] Last Admin: 12/15/17 09:28 Dose: 10 mg Lorazepam (Ativan) 1 mg IVP Q6H PRN PRN Reason: Anxiety Last Admin: 12/14/17 14:41 Dose: 1 mg Multivitamins (Hexavitamin) 1 tab PO DAILY [facility] Last Admin: 12/15/17 09:28 Dose: 1 tab Pantoprazole Sodium (Protonix Ec Tab) 40 mg PO DAILY [facility] Last Admin: 12/15/17 09:28 Dose: 40 mg - Labs Labs: 12/15/17 07:22 12/15/17 07:22 PT 13.4 SECONDS (9.7-12.2) H 12/10/17 16:06 INR 1.2 12/10/17 16:06 APTT 26 SECONDS (21-34) 12/10/17 16:06 - Additional Findings Additional findings: - Additional Findings Additional findings: - Constitutional Appears: Non-toxic, No Acute Distress - Head Exam Head Exam: NORMOCEPHALIC. absent: ATRAUMATIC (ecchymosis on left periorbital region) - Eye Exam Eye Exam: EOMI, Normal appearance Pupil Exam: PERRL - ENT Exam ENT Exam: Mucous Membranes Moist - Neck Exam Neck Exam: Normal Inspection - Respiratory Exam Respiratory Exam: Clear to Ausculation Bilateral, NORMAL BREATHING PATTERN. absent: Rhonchi, Wheezes, Respiratory Distress - Cardiovascular Exam Cardiovascular Exam: REGULAR RHYTHM, +S1, +S2. absent: Murmur - GI/Abdominal Exam GI & Abdominal Exam: Soft, Normal Bowel Sounds. absent: Tenderness - Back Exam Back Exam: tenderness (lower back paraspinal ) - Neurological Exam Neurological Exam: Alert, Awake - pt seen moving all extremities, does not follow instructions - Psychiatric Exam Psychiatric exam: Normal Affect, Normal Mood - Skin Skin Exam: Dry, Warm Assessment and Plan - Assessment and Plan (Free Text) Assessment: AMS w Advanced dementia -Admit to tele -Aricept 5mg po -Carotid duplex shows no significant stenosis of bilateral extraceranial carotid arteries -MRI brain shows No acute intracranial hemorrhage. 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 Benoit help appreciated - MRI shows significant atrophy w multiple subcortical ischemic changes. Suspicious for hemosiderosis. Probably microangiopathy vs bleed. 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 - recommend out of bed, bedside PT - MR angiogram shows no evidence of vascular pathology except hypoplastic right vertibal, left distal [place] Ativan 1mg IV Q6H PRN for agitation Weakness Dr. Benoit, Neurology review consultant - Etiology of weakness: ischemic vs space-occupying manifesting as left-sided weakness. Hx also suggestive of possible seizures. PT: PAULINO - EEG consistent with bilateral cerebral dysfunction without any paroxysmal activities or focal slowing. Mechanical fall -CT head shows chronic microvascular ischemic change -CT thoracic shows no evidence of fracture or dislocation -CT lumbar shows no evidence of fracture or dislocation. Diffuse degen disc disease. Mild dextroscoliosis -CT orbit shows no evidence of fracture. Mild left scalp contusion Hypothyroidism -TSH 4.96 -Continue Synthroid 50mcg Hypertension -Lisinopril 10mg DM -Glipizide 5mg -ISS -accucheck ACHS Prophylactic measures -Lovenox -Protonix -PT/OT - recommend PAULINO DISPO: Patient is to be transfer back to [place] post acute Case discussed with attending physician All management per Dr. Kaiser
[2017-12-16 07:36] LABS: ALB/GLOB RATIO 1.1 (1.0-2.1); ALT/SGPT 28 U/L (9-52); AST/SGOT 70 U/L (14-36); BLOOD UREA NITROGEN 11 mg/dL (7-17); CALCIUM 9.2 mg/dl (8.6-10.4); GFR AFRICAN-AMERICAN > 60; GFR NON-AFRICAN AMERICAN > 60
[2017-12-16 07:39] LABS: BASO # 0.1 K/uL (0.0-0.2); BASO % 1.3 % (0.0-2.0); EOS # 0.2 K/uL (0.0-0.7); EOS % 4.7 % (0.0-4.0); HEMOGLOBIN 12.1 g/dL (11.0-16.0); LYMPH # 2.1 K/uL (1.0-4.3); LYMPH % 40.9 % (20.0-40.0); MEAN CORPUSCULAR HEMOGLOBIN 31.1 pg (27.0-31.0); MEAN CORPUSCULAR HGB CONC 34.6 g/dL (33.0-37.0); MEAN PLATELET VOLUME 9.5 fL (7.2-11.7); MONO # 0.4 K/uL (0.0-0.8); NEUT # 2.4 K/uL (1.8-7.0); NEUT % 46.1 % (50.0-75.0); RBC 3.9 Mil/uL (3.80-5.20); RED CELL DISTRIBUTION WIDTH 13.4 % (11.5-14.5); WHITE BLOOD COUNT 5.2 K/uL (4.8-10.8)
[2017-12-16] MEDS: (Novolin R) Insulin Human Regular 100 units/ml vial SC SCH ×3 (08:30→17:36)
[2017-12-16] MEDS: Pantoprazole 40 mg EC Tab PO SCH (09:44)
[2017-12-16] MEDS: Enoxaparin 40 mg Syringe SC SCH (09:45)
[2017-12-16] MEDS: Multiple Vitamins Tab PO SCH (09:45)
--- NOTE | 2017-12-16 10:13 | PN ---
DATE: 12/16/2017 TIME OF EVALUATION: 07:05 a.m. 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 PHYSICAL EXAMINATION: VITAL SIGNS: Blood pressure 127/72, mean arterial pressure of 90, respiratory rate 18, temperature afebrile. NEUROLOGIC: The patient is awake and knows her name, follows one-step command, one-word answers with hypohonic. Tones are increased in all 4 extremities, more on left than the right side. The patient did have MR angiogram which does not show any vascular pathology except hypoplastic right vertebral, left distal [place] segment. The patient should be get out of the bed, physical therapy. When medically stable, the patient can be discharged back to her [facility]. An electroencephalogram shows a diffuse activities consistent with bilateral cerebral dysfunction without any paroxysmal activities or focal slowing. Nathan Benoit MD
[2017-12-16 16:21] VITALS: BP 170/71; PULSE 80; RESP 20; TEMP 97.2
--- NOTE | 2017-12-17 13:23 | EEG ---
DATE: 12/14/2017 This is a 16-channel electroencephalogram of a confused adult. During the study, photic stimulation was performed. Hyperventilation was not performed. The resting electroencephalogram consists of 20 to 30 microvolt diffuse 4 to 5 Hz delta mixed with theta activities seen at parietal and occipital leads anteriorly. Also showed similar activities with eye movement and eye blinking artifacts. Persistent left to frontal muscle artifacts contaminated with background rhythm. The photic stimulation did not evoke driving response noted at 2 to 20 Hz. IMPRESSION: This is an abnormal electroencephalogram because of persistent slowing throughout the records suggestive of bilateral cerebral dysfunction. This is probably secondary to metabolic, vascular, or degenerative process. Please correlate the findings with the neurological and radiological studies. Nathan Benoit MD
== END 2017-12-16 19:45 | DRG 57 ==
LOC: C.ER 14:48 → C.9E 18:29 → C.6T 20:02
PROVIDERS: ADMIT Internal Medicine Nephrology; ATTEND Internal Medicine Nephrology
DX: G30.1 Alzheimer's disease with late onset (principal); F01.50 Vascular dementia, unspecified severity, without behavioral disturbance, psychotic disturbance, mood disturbance, and anxiety; F02.80 Dementia in other diseases classified elsewhere, unspecified severity, without behavioral disturbance, psychotic disturbance, mood disturbance, and anxiety; R41.82 Altered mental status, unspecified; F07.81 Postconcussional syndrome; E03.9 Hypothyroidism, unspecified; E11.9 Type 2 diabetes mellitus without complications; W19.XXXA Unspecified fall, initial encounter; R53.1 Weakness; I10 Essential (primary) hypertension; W18.30XA Fall on same level, unspecified, initial encounter; Z79.4 Long term (current) use of insulin